=== PATIENT | female | born 2000 | race Caucasian/White ===

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

== ENCOUNTER 2022-03-27 13:47 | Emergency (ER) | payer OTHER ==
--- NOTE | 2022-03-27 14:51 | RAD REPORT ---
EXAM DESCRIPTION: RAD - Forearm Left - 03/27/2022 2:37 pm CLINICAL HISTORY: Pain COMPARISON: No comparisons FINDINGS/IMPRESSION: No acute fracture. No malalignment. No significant focal degenerative changes.
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
[2022-03-27 15:15] VITALS: TEMP 99.9; O2SAT 100
[2022-03-27 15:16] VITALS: BP 129/66
== END 2022-03-27 15:10 | disposition home or self-care (01) ==
LOC: ER 13:47
DX: M79.632 Pain in left forearm (principal); V49.40XA Driver injured in collision with unspecified motor vehicles in traffic accident, initial encounter; Z88.5 Allergy status to narcotic agent
CPT/HCPCS: 99283

== ENCOUNTER 2023-02-13 18:39 | Emergency (ER) | payer OTHER, SELFPAY ==
--- OUTSIDE RECORDS SUMMARY | 2023-02-13 18:42 | XMS REPORT | Continuity of Care Document ---
:2000 Author Organization [facility] t Address [address] [place] [address] Care Team Providers Name Role Phone PCP, PATIENT DOES NOT HAVE A Primary Care Physician UnavailAUBREE Perez Attending Clinician Unavailable AUBREE OSHEA Attending Clinician Unavailable Linda BARRAGAN, Dennis Attending Clinician DENNIS MCKEON Attending Clinician Unavailable Doctor Unassigned, [place] Attending Clinician Unavailable Payers Payer Name Policy Type Policy Number Effective Date Expiration Date S horace POPENA II [id number] 2022 00:00:00 Problems Condition Condition Condition Status Onset Resolution Last Treating Co mments Source Name Details Category Date Date Treatment Clinician Date Dyspareuni Dyspareuni Disease Active U nivers a in a in 09-04 ity of female female 00:00: [address] BMI BMI Disease Active Univers 30.0-30.9, 30.0-30.9, 09-04 it y of adult adult 00:00: [address] UTI UTI Disease Active Univers symptoms symptoms 09-04 ity of 00:00: [address] Allergies, Adverse Reactions, Alerts Allergy Allergy Status Severity Reaction(s) Onset Inactive Treating Comm ents Source Name Type Date Date Clinician NO KNOWN Drug Active Univers ALLERGIE Class ity of S [facility] Social History Social Habit Start Date Stop Date Quantity Comments Source Tobacco use and 2022-09-04 2022-09-04 Smokeless tobacco Un iversity of exposure 00:00:00 00:00:00 non-user [facility] Alcohol intake 2022-09-04 2022-09-04 Ex-drinker [facility] 00:00:00 00:00:00 (finding) [facility] Sex Assigned At [birth year] Universit y of 00:00:00 00:00:00 [facility] Smoking Status Start Date Stop Date Source Tobacco smoking consumption [facility] Never smoked tobacco [facility] Medications Ordered Filled Start Stop Current Ordering Indication Dosage Frequency Signature Comments Components Source Medication Medication Date Date Medication? Clinician (SIG) Name Name pumpkin Yes Take by [facility] seed 09-04 mouth. ity of extract/soy 11:25: [place] [facility] ([facility] BLADDER Branch CONTROL ORAL) pumpkin Yes Take by [facility] seed 6 mouth. ity of extract/soy 11:25: [place] [facility] ([facility] BLADDER Branch CONTROL ORAL) Vital Signs Vital Name Observation Time Observation Value Comments Source Systolic blood 2022-09-04 16:24:00 122 mm[Hg] Univer sity of pressure [facility] Diastolic blood 2022-09-04 16:24:00 76 mm[Hg] Unive rsity of [facility] Heart rate 2022-09-04 16:24:00 73 /min [facility] Body temperature 2022-09-04 16:24:00 36.72 [facility] Respiratory rate 2022-09-04 16:24:00 18 /min [facility] Body height 2022-09-04 16:24:00 160 cm [facility] Body weight 2022-09-04 16:24:00 78.019 kg [facility] BMI 2022-09-04 16:24:00 30.47 kg/m2 [facility] Procedures Procedure Date / Time Performed Performing Clinician Farhad e ASSIGNMENT OF BENEFITS 2022-09-04 16:14:52 Doctor Unassigned, No [facility] Encounters Start End Encounter Admission Attending Care Care Encounter Source Date/Time Date/Time Type Type Clinicians Facility Department ID 2022-09-24 2022-09-24 Outpatient R AUBREE OSHEA [facility] [id number] [facility] 10:30:00 10:30:00 AUBREE OSHEA [facility] 2022-09-04 2022-09-04 Office Tritschler, [facility] [id number] Univers 11:00:00 12:03:23 Visit Dennis OSHEA [id number] it y of [facility] [id number] [facility] [id number] [facility] [address] 2022-09-04 2022-09-04 Outpatient R LINDA DENNIS [facility] [id number] Univers 11:00:00 12:03:23 DENNIS MCKEON itbran [facility] 2022-09-04 2022-09-04 Orders Doctor RACHID [id number] Univers 00:00:00 00:00:00 Only Unassigned, TATA [id number] ity of [place] [facility] [id number] Eh [id number] [facility] [address] 2022-08-21 2022-08-21 Outpatient OWEN WEAVER [id number] [place] 16:00:14 16:00:14 0518 F [place] Results This patient has no known results.
[2023-02-13] MEDS ORDERED: NA CHLORIDE 0.9% 1,000 ML ONE ×2 (20:03→22:10)
[2023-02-13] MEDS ORDERED: ONDANSETRON 4 MG/2 ML VIAL ONE (20:03)
[2023-02-13] MEDS ORDERED: FAMOTIDINE 20 MG/2 ML VIAL IV ONE (20:03)
[2023-02-13 20:07] LABS: Specific Gravity 1.008 (1.005-1.030)
[2023-02-13 20:10] LABS: Specific Gravity 1.008 (1.005-1.030); Urine Bacteria <20 /HPF (<20); Urine Bilirubin NEGATIVE (Negative); Urine Blood Negative (Negative); Urine Clarity Extremely Turbid (Clear); Urine Color Light-Yellow (Yellow); Urine Crystals Unidentified Few /HPF (None Seen); Urine Glucose NEGATIVE (Negative); Urine Protein NEGATIVE (Negative); Urine RBC <5 /HPF (None Seen); Urine Urobilinogen Normal (Normal); Urine pH 6.5 (5.0-7.0)
[2023-02-13 20:18] LABS: SARS-CoV-2 Antigen Rapid Res Negative (Negative)
[2023-02-13 20:26] LABS: Bilirubin Total 0.3 mg/dL (0.2-1.0); Potassium 3.4 mEq/L (3.5-5.1)
[2023-02-13 20:46] LABS: Absolute Lymphocytes (CBC) 2.1 K/uL (0.7-4.9); Hematocrit 36.3 % (36.0-45.0); Lymphocytes % 29.5 % (15.3-44.8); MCV 75.1 fL (80-100); MPV 8.7 fL (7.6-11.3); Platelets 365 thou/uL (152-406); RBC Red Blood Cell Count 4.84 M/uL (3.86-4.86)
--- NOTE | 2023-02-13 23:05 | RAD REPORT ---
EXAM DESCRIPTION: RADChest Single View02/13/2023 10:06 pm CLINICAL HISTORY: COUGH COMPARISON: Chest Single View dated 09/27/2020 TECHNIQUE: Portable AP view of the chest. FINDINGS: The lungs are clear. No pneumothorax or effusion. The cardiomediastinal contours are unre markable. IMPRESSION: No acute cardiopulmonary process.
--- NOTE | 2023-02-14 00:32 | ER ---
Nurse's Notes [facility] Name: Flex Thao Age: 22 yrs Sex: Female : 2000 Arrival Date: 02/13/2023 Time: 18:39 Bed 12 Private MD: Diagnosis: Nausea with vomiting, unspecified;Cough;Acute pharyngitis, unspecified;Dizziness and giddiness Presentation: 02/13 19:08 Chief complaint: Patient states: I've been throwing up a lot I haven't been able to vc1 keep anything down and I have a really bad cough. It started yesterday morning and I have been dizzy and lightheaded. Coronavirus screen: Vaccine status: Patient reports being unvaccinated. Client denies travel out of the [place] in the last 14 days. cough unrelated to allergies, fever, nausea, runny nose, sore throat, vomiting. Client presents with at least one sign or symptom that may indicate coronavirus-19. Ebola Screen: Patient negative for fever greater than or equal to 101.5 degrees Fahrenheit, and additional compatible Ebola Virus Disease symptoms Patient denies exposure to infectious person. Patient denies travel to an Ebola-affected area in the 21 days before illness onset. No symptoms or risks identified at this time. Initial Sepsis Screen: Does the patient meet any 2 criteria? No. Patient's initial sepsis screen is negative. Does the patient have a suspected source of infection? No. Patient's initial sepsis screen is negative. Risk Assessment: Do you want to hurt yourself or someone else? Patient reports no desire to harm self or others. Onset of symptoms was February 12, 2023. 19:08 Method Of Arrival: Ambulatory vc1 19:08 Acuity: ROSY 4 vc1 Triage Assessment: 19:13 General: Appears in no apparent distress. uncomfortable, ill, Behavior is calm, vc1 cooperative, appropriate for age. Pain: Complains of pain in throat Pain does not radiate. Pain currently is 7 out of 10 on a pain scale. Aggravated by eating, drinking, swallowing, coughing. EENT: Reports nasal congestion pain when swallowing. Neuro: No deficits noted. Cardiovascular: No deficits noted. Respiratory: Airway is patent Respiratory effort is even, unlabored, Respiratory pattern is regular, symmetrical. GI: Reports nausea, vomiting. : No deficits noted. No signs and/or symptoms were reported regarding the genitourinary system. Derm: No deficits noted. No signs and/or symptoms reported regarding the dermatologic system. Musculoskeletal: No deficits noted. No signs and/or symptoms reported regarding the musculoskeletal system. Historical: - Allergies: 19:13 Codeine; vc1 - Home Meds: 19:13 None [Active]; vc1 - PMHx: 19:13 None; vc1 - PSHx: 19:13 None; vc1 - Immunization history:: Client reports having NOT received the Covid vaccine. - Social history:: Smoking status: Patient denies any tobacco usage or history of. Screenin:[facility] ED Fall Risk Assessment (Adult) Score/Fall Risk Level 0 - 2 = Low Risk. Abuse as6 screen: Denies threats or abuse. Denies injuries from another. Nutritional screening: No deficits noted. Tuberculosis screening: No symptoms or risk factors identified. Assessment: 21:30 Reassessment: Patient appears in no apparent distress at this time. General: Appears as6 ill. 02/14 01:26 Reassessment: No changes from previously documented assessment. Patient and/or family vc1 updated on plan of care and expected duration. Pain level reassessed. Patient is alert, oriented x 3, equal unlabored respirations, skin warm/dry/pink. Vital Signs: 02/13 19:08 BP 123 / 71; Pulse 67; Resp 20; Temp 98; Pulse Ox 100% ; Weight 77.11 kg; Height 5 ft. vc1 3 in. ; Pain 7/10; 21:29 BP 112 / 61; Pulse 71; Resp 20 S; Pulse Ox 98% on R/A; as6 02/14 01:27 BP 110 / 60; Pulse 68; Resp 18; Temp 98; Pulse Ox 98% ; vc1 02/13 19:08 Body Mass Index 30.11 (77.11 kg, 160.02 cm) vc1 02/13 19:08 Pain Scale: Adult vc1 ED Course: 02/13 18:42 Patient arrived in ED. im 18:47 Crispin Solis PA is PHCP. cp 18:47 Rajesh Patricio MD is Attending Physician. cp 19:12 Triage completed. vc1 19:13 Arm band placed on left wrist. vc1 19:57 Inserted saline lock: 20 gauge in right antecubital area, using aseptic technique. as6 Blood collected. 21:29 Bed in low position. Call light in reach. as6 22:08 XRAY Chest (1 view) In Process Unspecified. EDMS 22:48 CT Abd/Pelvis - IV Contrast Only In Process Unspecified. EDMS 02/14 01:26 No provider procedures requiring assistance completed. IV discontinued, intact, vc1 bleeding controlled, No redness/swelling at site. Pressure dressing applied. Administered Medications: 02/13 19:57 Drug: NS 0.9% IV 1000 ml IV at 1 bolus Per protocol; 1000 mL bolus Route: IV; Rate: 1 as6 bolus; Site: right antecubital; 19:57 Drug: Famotidine IVP 20 mg IVP once; dilute with 10 mL 0.9% NaCl; give over 2 minutes as6 Route: IVP; Site: right antecubital; 19:57 Drug: Ondansetron IVP 4 mg IVP once; over 2 minutes Route: IVP; Site: right antecubital;as6 22:00 Drug: NS 0.9% IV 1000 ml IV at 1 bolus Per protocol; 1000 mL bolus Route: IV; Rate: 1 as6 bolus; Site: right antecubital; 02/14 01:22 Drug: Ketorolac IVP 15 mg IVP once Route: IVP; Site: right antecubital; vc1 Medication: 02/13 21:30 VIS not applicable for this client. as6 Outcome: 02/14 00:31 Discharge ordered by . mariah 01:26 Discharged to home ambulatory, with significant other, vc1 01:26 Condition: good 01:26 Discharge instructions given to patient, Instructed on discharge instructions, follow up and referral plans. medication usage, Demonstrated understanding of instructions, follow-up care, medications, Prescriptions given X 2, 01:27 Patient left the ED. vc1 Addendum: 02/16/2023 08:26 Addendum: Culture Results: Positive urine culture. Phone call Attempt #1 spoke with a p3 patient, patient denies any UTI symptoms at this time. Patient instructed to follow up with PCP if symptoms arise. Signatures: Dispatcher [employer] EDIA Crispin Solis PA PA cp Prokisch, Amanda, RN RN ap3 Eitan Jauregui RN RN as6 Amanda Last, RN RN vc1 Del[place], Vivian im
--- NOTE | 2023-02-14 00:32 | EDPHYS ---
Physician Documentation [facility] Name: Flex Thao Age: 22 yrs Sex: Female : 2000 Arrival Date: 02/13/2023 Time: 18:39 Bed 12 Private MD: ED Physician Rajesh Patricio HPI: 02/13 19:45 This 22 yrs old Female presents to ER via Ambulatory with complaints of cp Nausea/Vomiting, Sore Throat, Cough, Dizziness. 19:45 The patient presents to the emergency department with nausea, with "dry heaves", cp vomiting, that is continuous, abdominal pain. Onset: The symptoms/episode began/occurred yesterday. Associated signs and symptoms: Pertinent positives: anorexia, cough, dizziness and lightheaded, sore throat, Pertinent negatives: diarrhea, GI bleeding. Severity of symptoms: in the emergency department the symptoms are unchanged despite home interventions. Historical: - Allergies: 19:13 Codeine; vc1 - Home Meds: 19:13 None [Active]; vc1 - PMHx: 19:13 None; vc1 - PSHx: 19:13 None; vc1 - Immunization history:: Client reports having NOT received the Covid vaccine. - Social history:: Smoking status: Patient denies any tobacco usage or history of. ROS: 19:50 Constitutional: Positive for poor PO intake, Negative for fever, cp 19:50 Eyes: Negative for injury, pain, redness, and discharge, cp 19:50 ENT: Positive for sore throat, 19:50 Respiratory: Positive for cough, Negative for shortness of breath, wheezing, 19:50 Abdomen/GI: Positive for abdominal pain, nausea and vomiting, anorexia, Negative for diarrhea, constipation, hematemesis, rectal bleeding, 19:50 : Negative for urinary symptoms, 19:50 Neuro: Positive for dizziness, Negative for altered mental status, syncope, near syncope, 19:50 All other systems are negative, Exam: 19:55 Constitutional: The patient appears in no acute distress, alert, awake, non-toxic, well cp developed, well nourished, uncomfortable, 19:55 Head/Face: Normocephalic, atraumatic. cp 19:55 Eyes: Periorbital structures: appear normal, Conjunctiva: normal, no exudate, no injection, Sclera: no appreciated abnormality, Lids and lashes: appear normal, bilaterally, 19:55 ENT: External ear(s): are unremarkable, Ear canal(s): are normal, clear, TM's: dullness, bilaterally, Nose: is normal, Mouth: Lips: moist, Oral mucosa: pink and intact, moist, Posterior pharynx: is normal, airway is patent, no erythema, no exudate, 19:55 Neck: ROM/movement: is normal, is supple, without pain, no range of motions limitations, no meningismus, no nuchal rigidity, 19:55 Chest/axilla: Inspection: normal, 19:55 Cardiovascular: Rate: normal, Rhythm: regular, 19:55 Respiratory: the patient does not display signs of respiratory distress, Respirations: normal, no use of accessory muscles, no retractions, labored breathing, is not present, Breath sounds: are clear throughout, no decreased breath sounds, no stridor, no wheezing, 19:55 Abdomen/GI: Inspection: abdomen appears normal, Bowel sounds: active, all quadrants, Palpation: soft, in all quadrants, moderate abdominal tenderness, in the epigastric area, right upper quadrant and left upper quadrant, rebound tenderness, is not appreciated, involuntary guarding, is not appreciated, 19:55 Back: CVA tenderness, is absent, 19:55 Skin: no rash present. 19:55 Neuro: Orientation: to person, place \\T\\ time. Mentation: is normal, Motor: moves all fours, strength is normal, Sensation: is normal, 23:15 ECG was reviewed by the Attending Physician. cp Vital Signs: 19:08 BP 123 / 71; Pulse 67; Resp 20; Temp 98; Pulse Ox 100% ; Weight 77.11 kg; Height 5 ft. vc1 3 in. ; Pain 7/10; 21:29 BP 112 / 61; Pulse 71; Resp 20 S; Pulse Ox 98% on R/A; as6 02/14 01:27 BP 110 / 60; Pulse 68; Resp 18; Temp 98; Pulse Ox 98% ; vc1 02/13 19:08 Body Mass Index 30.11 (77.11 kg, 160.02 cm) vc1 02/13 19:08 Pain Scale: Adult vc1 MDM: 02/13 19:15 Patient medically screened. cp 20:00 Differential diagnosis: gastritis, cholecystitis, pancreatitis, appendicitis, viral cp gastroenteritis, gastroenteritis. 02/14 00:30 Data reviewed: vital signs, nurses notes, lab test result(s), EKG, radiologic studies, cp CT scan, plain films. 00:30 I considered the following discharge prescriptions or medication management in the emergency department Medications were administered in the Emergency Department. See MAR. Counseling: I had a detailed discussion with the patient and/or guardian regarding the historical points, exam findings, and any diagnostic results supporting the discharge/admit diagnosis, lab results, radiology results, to return to the emergency department if symptoms worsen or persist or if there are any questions or concerns that arise at home. Response to treatment: the patient's symptoms have markedly improved after treatment, VSS. Nausea markedly improved and vomiting resolved. Will discharge to home for continued monitoring. Special discussion: Based on the patient's Hx, exam, and Dx evaluation, there is no indication for emergent surgery or inpatient Tx. It is understood by the patient/guardian that if the Sx's persist or worsen they need to return immediately for re-evaluation. 02/13 19:18 Order name: CBC with Diff; Complete Time: 21:49 02/13 21:49 Interpretation: Normal except: MCV 75.1; MCH 25.0. 02/13 19:18 Order name: CMP; Complete Time: 21:49 02/13 21:49 Interpretation: Normal except: K 3.4; BUN 4; GLOB 4.0; A/G 1.0; AST 9. 02/13 19:18 Order name: Lipase; Complete Time: 21:49 02/13 19:18 Order name: Test, Urine; Complete Time: 21:49 02/13 19:18 Order name: Urinalysis w/ reflexes; Complete Time: 21:49 02/13 21:49 Interpretation: Normal except: [facility] Extremely Turbid; UNIT 2+; UESTR 75; UWBC 10-20. 02/13 19:18 Order name: SARS RAPID; Complete Time: 21:49 02/13 19:18 Order name: Influenza Screen (a \\T\\ B); Complete Time: 21:49 02/13 19:18 Order name: Strep 02/13 20:13 Order name: Urine Culture [facility] 02/13 20:55 Order name: Throat Culture [facility] 02/13 21:50 Order name: XRAY Chest (1 view); Complete Time: 00:01 02/14 00:01 Interpretation: Report review. 02/13 21:52 Order name: CT Abd/Pelvis - IV Contrast Only 02/13 22:47 Order name: EKG; Complete Time: 22:47 cp 02/13 19:18 Order name: IV Saline Lock; Complete Time: 19:57 cp 02/13 19:18 Order name: Labs collected and sent; Complete Time: 19:57 02/13 22:47 Order name: EKG - Nurse/Tech; Complete Time: 01:22 cp 02/14 00:26 Order name: PO challenge; Complete Time: :22 cp EC/10 23:15 Rate is 54 beats/min. Rhythm is regular. CA interval is normal. QRS interval is normal. cp QT interval is normal. T waves are Inverted in lead aVR. Interpreted by me. Reviewed by me. Administered Medications: 19:57 Drug: NS 0.9% IV 1000 ml IV at 1 bolus Per protocol; 1000 mL bolus Route: IV; Rate: 1 as6 bolus; Site: right antecubital; 19:57 Drug: Famotidine IVP 20 mg IVP once; dilute with 10 mL 0.9% NaCl; give over 2 minutes as6 Route: IVP; Site: right antecubital; 19:57 Drug: Ondansetron IVP 4 mg IVP once; over 2 minutes Route: IVP; Site: right antecubital;as6 22:00 Drug: NS 0.9% IV 1000 ml IV at 1 bolus Per protocol; 1000 mL bolus Route: IV; Rate: 1 as6 bolus; Site: right antecubital; 02/14 01:22 Drug: Ketorolac IVP 15 mg IVP once Route: IVP; Site: right antecubital; vc1 Disposition Summary: 02/14/23 00:31 Discharge Ordered Notes: Location: Home cp Problem: new cp Symptoms: have improved cp Condition: Stable cp Diagnosis - Nausea with vomiting, unspecified cp - Cough cp - Acute pharyngitis, unspecified cp - Dizziness and giddiness cp Followup: cp - With: Private Physician - When: 2 - 3 days - Reason: Worsening of condition Discharge Instructions: - Discharge Summary Sheet cp - Dizziness cp - Nausea and Vomiting, Adult cp - Sore Throat cp - Cough, Adult cp - Form - Excuse from Work, School, or Physical Activity cp Forms: - Family Work Release cp - Medication Reconciliation Form cp - Thank You Letter cp - Antibiotic Education cp - Prescription Opioid Use cp - Patient Portal Instructions cp - Leadership Thank You Letter cp - Work release form vc1 Prescriptions: - Bromfed DM 2-30-10 mg/5 mL Oral syrup - administer 10 milliliter ORAL route every 6 hours as needed for cold symptoms; cp 180 milliliter; Refills: 0, Product Selection Permitted - Zofran 4 mg Oral Tablet - take 1 tablet ORAL route every 12 hours As needed; 20 tablet; Refills: 0, cp Product Selection Permitted Signatures: Dispatcher [employer] EDMS Crispin Solis PA PA cp Slawson, Ashby RN RN as6 Amanda Last RN RN vc1
[2023-02-14] MEDS ORDERED: KETOROLAC 30 MG/ML INJ ONE (01:28)
[2023-02-14 01:32] VITALS: TEMP 98
[2023-02-14 01:33] VITALS: O2SAT 98
[2023-02-14 01:35] VITALS: BP 110/60
--- NOTE | 2023-02-14 14:06 | EKG ---
Test Date: 2023-02-13 Test Time: 23:09:50 Test Tube Maker: MARCIO MEASUREMENT RESULTS: Intervals: Rate: 54 MI: 150 QRSD: 98 QT: 422 QTc: 400 Longs: P: 42 MI: 150 QRS: 79 T: 66 INTERPRETIVE STATEMENTS: Sinus bradycardia with premature atrial complexes Otherwise normal ECG No previous ECG available for comparison Electronically Signed On 02-14-23 14:06:03 DENTAL HYGIENE INSTRUCTOR by Paras Cantu
--- NOTE | 2023-02-14 16:47 | RAD REPORT ---
EXAM DESCRIPTION: CT - Abdomen Pelvis W Contrast - 02/14/2023 10:15 am CLINICAL HISTORY: 22 years Female rlq abdomen pain TECHNIQUE: Axial CT imaging of the abdomen and pelvis was performed following the administration of intravenous contrast.. Oral contrast was not administered. Sagittal and coronal reconstructed image s were then performed. The CT study is performed according to ALARA (as low as reasonably achievabl e) or ALARA/IMAGE GENTLY, with automatic adjustment of mA and/or kV according to patient size. Performed on: 02/13/2023 at 10:41 PM. COMPARISON: CT abdomen and pelvis performed on 09/27/2020 FINDINGS: Lung bases: Lung bases are clear. The heart is normal in size. Liver: The liver is normal in size and configuration. No focal hepatic abnormalities are identified. Liver attenuation is within normal limits. The portal veins are patent. Spleen: The spleen is normal in size, configuration and attenuation. Gallbladder and bile duct: The gallbladder is well distended and unremarkable. There is no biliary ductal dilatation. Pancreas: The pancreas is grossly normal in size and configuration. Adrenal Glands: The adrenal glands are normal in size and configuration. Kidneys: The kidneys are normal in size and configuration. There is no evidence of hydronephrosis. Th ere is no evidence of nephrolithiasis. No definite solid or cystic renal mass lesions are identified. Stomach: The stomach is grossly normal. There is no definite hiatal hernia. Bowel: The bowel gas pattern is non specific and non obstructive. Appendix: The appendix is normal. Free air: There is no evidence of free air. Free fluid: There is no evidence of free fluid. Vasculature: The aorta is normal in caliber and contour. The inferior vena cava is grossly unremarkab le. Lymphadenopathy: No pathologic lymphadenopathy is identified. Bladder: The bladder is well distended and smooth in contour. Reproductive: The uterus is grossly within normal limits. The adnexal regions are within normal limit s. Bones: No acute osseous abnormalities are identified. Soft tissues: No acute soft tissue abnormalities are identified. IMPRESSION: No evidence of acute intra-abdominal or intrapelvic pathology. There is no CT evidence o f acute appendicitis, acute gallbladder pathology or urinary tract obstruction. Electronically signed by: Bhumika Ortega DO 02/13/2023 11:07 PM OBSTETRICAL TECH Due to temporary technical issues with the PACS/Fluency reporting system, reports are being signed by the in house radiologists without review as a courtesy to insure prompt reporting. The interpreting radiologist is fully responsible for the content of the report.
== END 2023-02-14 01:27 | disposition home or self-care (01) ==
LOC: ER 18:39
DX: R11.2 Nausea with vomiting, unspecified (principal); R05.9 Cough, unspecified; J02.9 Acute pharyngitis, unspecified; R42 Dizziness and giddiness; Z88.5 Allergy status to narcotic agent; Z20.822 Contact with and (suspected) exposure to COVID-19; Z11.52 Encounter for screening for COVID-19
CPT/HCPCS: 36415; 71045; 74177; 80053; 81001; 81025; 83690; 85025; 87070; 87077; 87081; 87086; 87088; 87186; 87804; 87811; 93005; 96374; 96375; 99284; J2405; J7030; Q9967

== ENCOUNTER 2023-11-03 21:03 | Emergency (ER) | payer SELFPAY ==
--- OUTSIDE RECORDS SUMMARY | 2023-11-03 21:06 | XMS REPORT | Continuity of Care Document ---
Author Name Unknown Address [address] [place] [address] [facility] Address [address] [place] [address] Care Team Providers Care Licensed Plumber Name Role Phone PCP, PATIENT DOES NOT HAVE A Primary Care Physic devaughn Unavailable SALMA MORRISON Attending Clinician Unavailable Salma Lim Attending Clinician [phone] AUBREE OSHEA Attending Clinician Unavailable AUBREE OSHEA Attending Clinician Unavailable DENNIS MCKEON Attending Clinician DENNIS Treadwell Attending Clinician [place] Doctor Unassigned, [place] Attending Clinician U SALMA Penaloza Admitting Clinician Unavailable Payers Payer Name Policy Type Policy Number Effective Date Expirati on Date Source [employer]IG[employer] II [id number] 2022 00:00:00 Problems Condition Name Condition Details Condition Category Status Onset Date Resolution Date Last Treatment Date Treating Clinician Comments Source Dyspareuni a in female Dyspareuni a in female Disease Active 09-04 00:00: 00 [facility] BMI 30.0-30.9, adult BMI 30.0-30.9, adult Disease Active 09-04 00:00: 00 [facility] UTI symptoms UTI symptoms Disease Active 09-04 00:00: 00 [facility] Allergies, Adverse Reactions, Alerts Allergy Name Allergy Type Status Severity Reaction(s) Onset Date Inactive Date Treating Clinician Comments Source CODEINE DRUG INGREDI Active Rash 10-20 00:00: 00 [facility] Codeine Propensi ty to adverse reaction s Active Rash 10-20 00:00: 00 [facility] NO KNOWN ALLERGIE S Drug Class Active [facility] Social History Social Habit Start Date Stop Date Quantity Comments [facility] intake 2023-10-21 00:00:00 2023-10-21 00:00:00 Ex-drinker (finding) [facility] History of Social function 2023-10-21 00:00:00 2023-10-21 00:00:00 [facility] Tobacco use and exposure 2022-09-04 00:00:00 2022-09-04 00:00:00 Smokeless tobacco non-user [facility] Alcohol intake 2022-09-04 00:00:00 2022-09-04 00:00:00 Ex-drinker (finding) [facility] Sex assigned at 2000 00:00:00 2000 00:00:00 [facility] Smoking Status Start Date Stop Date Source Tobacco smoking consumption unknown [facility] Never smoked tobacco [facility] Medications Ordered Medication Name Filled Medication Name Start Date Stop Date Current Medication? Ordering Clinician Indication Dosage Frequency Signature (SIG) Comments Components Source iopamidol (ISOVUE 370-500 mL) injection 80 mL 10-20 22:45: 00 10-20 22:45 :00 No [id number] 80mL 80 mL, Intravenou s, ONCE, 1 dose, On Thu10/21/23 at 1745, Routine [facility] cefTRIAXone (ROCEPHIN) 1,000 mg in NaCl 0.9% (NS) 100 mL MINI-BAG 10-20 22:15: 00 10-20 22:49 :00 No 1000mg 1,000 mg, IV Piggyback, ONCE, 1 dose, On Thu10/21/23 at 1715, Administer over 30 Minutes, 100 mL, Reason for Anti-Infec tive: Documented Infection, Documented Infection Site: Urine, Duration of Therapy: Once (ED) [facility] phenazopyri dine 200 mg tablet 10-20 00:00: 00 Yes [id number] 200mg Take 1 tablet by mouth in the morning and 1 tablet at noon and 1 tablet in the evening. [facility] ondansetron 4 mg disintegrat ing tablet 10-20 00:00: 00 Yes [id number] 4mg Take 1 tablet by mouth every 8 (eight) hours as needed for Nausea and Vomiting (N/V). [facility] cefdinir 300 mg capsule 10-20 00:00: 00 10-28 04:59 :00 Yes [id number] 300mg Take 1 capsule by mouth in the morning and 1 capsule in the evening. Do all this for 7 days. [facility] pumpkin seed extract/soy germ (AZO BLADDER CONTROL ORAL) 09-04 11:25: 40 Yes Take by mouth. [facility] Vital Signs Vital Name Observation Time Observation Value Comments S ource Systolic blood pressure 2023-10-21 22:20:00 108 mm[Hg] [facility] Diastolic blood pressure 2023-10-21 22:20:00 54 mm[Hg] [facility] Heart rate 2023-10-21 22:20:00 67 /min [facility] Body temperature 2023-10-21 22:20:00 36.94 Maureen [facility] Respiratory rate 2023-10-21 22:20:00 16 /min [facility] Oxygen saturation in Arterial blood by Pulse oximetry 2023-10-21 22:20:00 100 /min [facility] Body height 2023-10-21 18:37:00 160 cm [facility] Body weight 2023-10-21 18:37:00 79.379 kg [facility] BMI 2023-10-21 18:37:00 31.00 kg/m2 [facility] Systolic blood pressure 2022-09-04 16:24:00 122 mm[Hg] [facility] Diastolic blood pressure 2022-09-04 16:24:00 76 mm[Hg] [facility] Heart rate 2022-09-04 16:24:00 73 /min [facility] Body temperature 2022-09-04 16:24:00 36.72 Maureen [facility] Respiratory rate 2022-09-04 16:24:00 18 /min [facility] Body height 2022-09-04 16:24:00 160 cm [facility] Body weight 2022-09-04 16:24:00 78.019 kg [facility] BMI 2022-09-04 16:24:00 30.47 kg/m2 [facility] Procedures Procedure Date / Time Performed Performing Clinicia n Source COMP. METABOLIC PANEL (72562) 2023-10-21 20:22:00 Salma Morrison [facility] CBC WITH DIFF 2023-10-21 20:22:00 Salma Morrison [facility] URINALYSIS 2023-10-21 20:22:00 Salma Morrison [facility] INFLUENZA A/B RSV COVID NAAT 2023-10-21 20:22:00 Salma Morrison [facility] POCT TEST 2023-10-21 20:18:00 Marielle Morrison [facility] ASSIGNMENT OF BENEFITS 2022-09-04 16:14:52 Docto r Unassigned, [place] [facility] Encounters Start Date/Time End Date/Time Encounter Type Admission Type Attending [facility] Care Department Encounter ID Source 2023-10-21 13:37:00 2023-10-21 18:04:00 Emergency X SALMA MORRISON [facility] ERT [id number] [facility] 2023-10-21 13:37:00 2023-10-21 18:04:00 Emergency Salma Morrison [facility] [id number] [facility] 2023-05-28 08:31:13 2023-05-28 08:31:13 Outpatient SFA OWEN [id number] Chava Talbert 2022-09-24 10:30:00 2022-09-24 10:30:00 Outpatient R AUBREE OSHEA ELISHA [facility] [id number] [facility] 2022-09-04 11:00:00 2022-09-04 12:03:23 Outpatient R DENNIS MCKEON CHERYAL [facility] [id number] [facility] 2022-09-04 11:00:00 2022-09-04 12:03:23 Office Visit Dennis Mckeon [facility] [id number] [facility] 2022-09-04 00:00:00 2022-09-04 00:00:00 Orders Only Doctor Unassigned, [place] [facility] [id number] [facility] 2022-08-21 16:00:14 2022-08-21 16:00:14 Outpatient SFA SFA [id number] Chava Talbert Results Test Description Test Time Test Comments Results Result Co mments Source [facility] WITH [id number] 20:53:11* Test Item Value Reference Range Interpretation Comme nts WBC (test code = 6690-2) 7.81 4.30-11.10 RBC (test code = 789-8) 4.65 3.93-5.25 HGB (test code = 718-7) 11.9 g/dL 11.6-15.0 HCT (test code = 4544-3) 37.1 % 35.7-45.2 MCV (test code = 787-2) 79.8 fL 80.6-95.5 L MCH (test code = 785-6) 25.6 pg 25.9-32.8 L MCHC (test code = 786-4) 32.1 g/dL 31.6-35.1 RDW-SD (test code = 30499-2) 38.8 fL 39.0-49.9 L RDW-CV (test code = 788-0) 13.6 % 12.0-15.5 PLT (test code = 777-3) 260 166-358 MPV (test code = 49083-6) 11.0 fL 9.5-12.9 NRBC/100 WBC (test code = 2916405430) 0.0 0.0-10.0 NRBC x10^3 (test code = 6108882016) See_Comment [Automated messa ge] The system which generated this result transmitted reference range: 10*3/?L. The reference range was not used to interpret this result as normal/abnormal. GRAN MAT (NEUT) % (test code = 770-8) 69.5 % IMM GRAN % (test code = 9479310901) 0.40 % LYMPH % (test code = 736-9) 22.4 % MONO % (test code = 5905-5) 5.4 % EOS % (test code = 713-8) 1.3 % BASO % (test code = 706-2) 1.0 % GRAN MAT x10^3(ANC) (test code = 9701255906) 5.43 10*3/uL 1.88-7.09 IMM GRAN x10^3 (test code = 6482962508) 0.03 10*3/uL 0.00-0.06 LYMPH x10^3 (test code = 731-0) 1.75 10*3/uL 1.32-3.29 MONO x10^3 (test code = 742-7) 0.42 10*3/uL 0.33-0.92 EOS x10^3 (test code = 711-2) 0.10 10*3/uL 0.03-0.39 BASO x10^3 (test code = 704-7) 0.08 10*3/uL 0.01-0.07 H Lab Interpretation (test code = 64638-6) [facility]normal [id number] 20:18:00* Test Item Value Reference Range Interpretation Comme nts POCT PREG (test code = 1605) Negative On board controls acceptable with C Line (test code = 3574) No POCT PREG LOT # (test code = 3575) [id number] POCT PREG TEST DATE ( test code = 3576) 08/07/2024 Lab Interpretation (test cod e = 50741-7) Normal [facility] Notes Date/Time Note Provider Source 2023-10-21 18:01:14 Pt given printed and verbal discharge instructions regarding cystitis abdominal pain, RLQ abdominal pain,dysuria, nasal congestion, and vomiting, encouraged hydration. 3 Prescriptions sent to pharmacy. Discussed antibiotic therapy and to take until all completed unless adverse reaction occurs - if occurs, discontinue medication and follow up with pcp/seek medical attention. Pt verbalized understanding of instructions, pt awake alert oriented, resp reg unlabored, skin w/d, color appropriate for race, moves all ext well,pt encouraged to follow up with pcp. Advised to seek medical attention for new/prolonged/worsening of symptoms. No adverse reaction to meds given in ER noted upon discharge. Awake, alert oriented, resp reg unlabored, skin w/d, pt leaving amb with steady gait, in no apparent distress. T Arabella Davila RN [facility] [employer] [employer] 2023-10-21 17:23:52 Patient sitting in chair, on her phone. T [facility] 2023-10-21 13:35:51 Patient has RLQ pain that started Thursday. Has nausea and vomiting. No fever but has some body aches. S [facility] [employer]
[2023-11-03] MEDS ORDERED: FAMOTIDINE 20 MG/2 ML VIAL IV ONE (23:31)
[2023-11-03] MEDS ORDERED: ONDANSETRON 4 MG/2 ML VIAL ONE (23:31)
[2023-11-03] MEDS ORDERED: NA CHLORIDE 0.9% 1,000 ML ONE (23:31)
[2023-11-04 00:08] LABS: Absolute Basophils 0.1 K/uL (0-0.5); Absolute Eosinophils 0.1 K/uL (0-0.5); Absolute Lymphocytes (CBC) 2.1 K/uL (0.7-4.9); Absolute Monocytes 0.5 K/uL (0.1-1.3); Absolute Neutrophil 5.5 K/uL (1.8-8.0); Basophils % 1.1 % (0-1.3); Eosinophils % 1.1 % (0-4.4); Hematocrit 36.3 % (36.0-45.0); Hemoglobin 11.9 g/dL (12.0-15.0); Lymphocytes % 25.7 % (15.3-44.8); MCH 25.3 pg (27.0-35.0); MCHC 32.8 g/dL (32.0-36.0); MCV 77.2 fL (80-100); MPV 8.3 fL (7.6-11.3); Monocytes % 5.7 % (3.3-12.3); Neutrophils % 66.4 % (41.7-73.7); Nucleated Red Blood Cells % 0.1 % (0-0); Platelets 378 thou/uL (152-406); RBC Red Blood Cell Count 4.71 M/uL (3.86-4.86)
[2023-11-04 00:21] LABS: Anion Gap 7.7 mEq/L (5.0-15.0); BUN Blood Urea Nitrogen 7 mg/dL (7-18); Bicarbonate 28 mEq/L (21-32); Glomerular Filtration Rate 131 ml/min (=/>90); Glucose Level 97 mg/dL (74-106); Potassium 3.7 mEq/L (3.5-5.1); Sodium Level 138 mEq/L (136-145)
[2023-11-04 00:23] LABS: Troponin High Sensitivity < 3.0 pg/mL (<58.9)
--- NOTE | 2023-11-04 00:49 | EDPHYS ---
Physician Documentation [facility] Name: Flex Thao Age: 23 yrs Sex: Female : 2000 Arrival Date: 11/03/2023 Time: 21:03 Bed 5 Private MD: ED Physician Eulogio Connolly HPI: 11/02 23:36 This 23 yrs old Female presents to ER via Ambulatory with complaints of Chest Pain, kb Nausea. 23:36 Pt is a 23 year old female who presents for chest pain and vomiting x1 after drinking a kb blue alcoholic drink just block captain. States symptoms started within an hour of arrival. Denies shortness of breath. . 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 - Infectious Disease History:: Denies. - Social history:: Smoking status: Patient denies any tobacco usage or history of. ROS: 23:36 Constitutional: As per HPI kb Exam: 23:19 Constitutional: This is a well developed, well nourished patient who is awake, alert, kb and in no acute distress. Head/Face: Normocephalic, atraumatic. ENT: Moist Mucous membranes Cardiovascular: Regular rate Respiratory: Respirations even and unlabored. No increased work of breathing. Talking in full sentences Abdomen/GI: Soft, non-tender. No distention Skin: Warm, dry with normal turgor. Normal color. MS/ Extremity: Pulses equal, no cyanosis. Neurovascular intact. Full, normal range of motion. Neuro: Awake and alert, GCS 15, oriented to person, place, time, and situation. Moves all extremities. Normal gait. 23:19 ECG was reviewed by the Attending Physician. Vital Signs: 21:44 BP 120 / 70; Pulse 77; Resp 16; Temp 97; Pulse Ox 98% on R/A; Weight 79.38 kg; Height 5 cm10 ft. 3 in. ; Pain 7/10; 23:51 BP 105 / 55; Pulse 62; Resp 17; Temp 97; Pulse Ox 100% ; Pain 8/10; bm8 11/03 00:55 BP 102 / 69; Pulse 67; Resp 17; Temp 97; Pulse Ox 100% ; Pain 0/10; bm8 11/02 21:44 Body Mass Index 31.00 (79.38 kg, 160.02 cm) [facility] 11/02 21:44 Pain Scale: Adult cm10 23:51 Pain Scale: Adult 8 11/03 00:55 Pain Scale: Adult bm8 Francesco Coma Score: 11/02 23:51 Eye Response: spontaneous(4). Motor Response: obeys commands(6). Verbal Response: bm8 oriented(5). Total: 15. 11/03 00:55 Eye Response: spontaneous(4). Motor Response: obeys commands(6). Verbal Response: bm8 oriented(5). Total: 15. MDM: 11/02 21:07 Patient medically screened. kb 11/03 00:48 Differential diagnosis: GERD, abnormal EKG, [place]. Data reviewed: vital signs, nurses kb notes. Counseling: I had a detailed discussion with the patient and/or guardian regarding the historical points, exam findings, and any diagnostic results supporting the discharge/admit diagnosis, lab results, radiology results, the need for outpatient follow up, a family practitioner, to return to the emergency department if symptoms worsen or persist or if there are any questions or concerns that arise at home. 11/02 21:40 Order name: Basic Metabolic Panel; Complete Time: 00:42 cm10 11/02 21:40 Order name: CBC with Diff; Complete Time: 00:16 cm10 11/02 21:40 Order name: Troponin HS; Complete Time: 00:42 cm10 11/02 21:40 Order name: XRAY Chest (1 view) [facility] 11/02 21:40 Order name: EKG; Complete Time: 21:40 10 11/02 21:40 Order name: Cardiac monitoring; Complete Time: 23:48 cm10 11/02 21:40 Order name: EKG - Nurse/Tech; Complete Time: 22:11 cm10 11/02 21:40 Order name: IV Saline Lock; Complete Time: 23:48 cm10 11/02 21:40 Order name: Labs collected and sent; Complete Time: 23:48 cm10 11/02 21:40 Order name: O2 Per Protocol; Complete Time: 23:48 cm10 11/02 21:40 Order name: O2 Sat Monitoring; Complete Time: 23:48 cm10 EC/30 23:19 Rate is 84 beats/min. Rhythm is regular. QRS [place] is Normal. [place] interval is normal at kb 144 msec. QRS interval is normal at 92 msec. QT interval is normal at 437 msec. Administered Medications: 23:56 Drug: Ondansetron IVP 4 mg IVP once; over 2 minutes Route: IVP; Site: right forearm; [facility] 11/03 00:56 Follow up: Response: No adverse reaction [facility] 11/02 23:56 Drug: Famotidine IVP 20 mg IVP once; dilute with 10 mL 0.9% NaCl; give over 2 minutes bm8 Route: IVP; Site: right antecubital; 11/03 00:56 Follow up: Response: No adverse reaction [facility] 11/02 23:56 Drug: NS 0.9% IV 1000 ml IV at 1000 ml once Route: IV; Rate: 1000 ml; Site: right bm8 antecubital; 11/03 00:56 Follow up: Response: No adverse reaction; IV Status: Completed infusion; IV Intake: bm8 1000ml Disposition Summary: 11/04/23 00:48 Discharge Ordered Notes: Location: Home kb Condition: Stable kb Diagnosis - Chest pain, unspecified kb Followup: kb - With: Emergency Department - When: As needed - Reason: Worsening of condition Followup: kb - With: Private Physician - When: 2 - 3 days - Reason: Recheck today's complaints, Continuance of care, Re-evaluation by your physician Discharge Instructions: - Discharge Summary Sheet kb - Nonspecific Chest Pain, Adult, [id number] kb Forms: - Medication Reconciliation Form kb - Antibiotic Education kb - Prescription Opioid Use kb - Patient Portal Instructions kb - Leadership Thank You Letter kb Addendum: 11/05/2023 02:44 I was immediately available for consultation during this patient's visit. I did not e c2 personally see the patient or discuss the patient with the GALLO. . Signatures: Dispatcher [employer] Florence Pickett FNP-C FNP-Nicki Toribio, RN RN cm10 Eulogio Connolly MD MD 2 Cristiano Chowdhury RN RN bm8 Corrections: (The following items were deleted from the chart) 11/03 00:48 00:47 Transition of care: After a detail discussion of the patient's case, care is kb transferred to Eulogio mann
--- NOTE | 2023-11-04 00:49 | ER ---
Nurse's Notes [facility] Name: Flex Thao Age: 23 yrs Sex: Female : 2000 Arrival Date: 11/03/2023 Time: 21:03 Bed 5 Private MD: Diagnosis: Chest pain, unspecified Presentation: 11/02 21:44 Chief complaint: Patient states: chest pressure to the center of her chest that started cm10 after having a drink. Coronavirus screen: Client denies travel out of the [place] in the last 14 days. At this time, the client does not indicate any symptoms associated with coronavirus-19. Ebola Screen: Patient denies travel to an Ebola-affected area in the 21 days before illness onset. No symptoms or risks identified at this time. Initial Sepsis Screen: Does the patient meet any 2 criteria? No. Patient's initial sepsis screen is negative. Does the patient have a suspected source of infection? No. Patient's initial sepsis screen is negative. Risk Assessment: Do you want to hurt yourself or someone else? Patient reports no desire to harm self or others. Onset of symptoms was November 03, 2023. 21:44 Method Of Arrival: Ambulatory cm10 21:44 Acuity: ROSY 3 cm10 Triage Assessment: 21:46 General: Appears in no apparent distress. comfortable, Behavior is calm, cooperative. cm10 Neuro: No deficits noted. Level of Consciousness is awake, alert, obeys commands, Oriented to person, place, time, situation, Appropriate for age. Respiratory: No deficits noted. Airway is patent Respiratory effort is even, unlabored, Respiratory pattern is regular, symmetrical. 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 - Infectious Disease History:: Denies. - Social history:: Smoking status: Patient denies any tobacco usage or history of. Screenin:51 [facility] ED Fall Risk Assessment (Adult) History of falling in the last 3 months, bm8 including since admission No falls in past 3 months (0 pts) Confusion or Disorientation No (0 pts) Intoxicated or Sedated No (0 pts) Impaired Gait No (0 pts) Mobility Assist Device Used No (0 pt) Altered Elimination No (0 pt) Score/Fall Risk Level 0 - 2 = Low Risk Oriented to surroundings, Maintained a safe environment, Educated pt \T\ family on fall prevention, incl call for assistance when getting out of bed, Assessed \T\ reinforced patient's understanding of fall precautions, Hourly rounding (assess needs \T\ fall precautionary measures) done, Used ambulatory aids as needed (educated on \T\ assisted with). Abuse screen: Denies threats or abuse. Nutritional screening: No deficits noted. Tuberculosis screening: No symptoms or risk factors identified. Assessment: 23:51 Reassessment: Patient appears in no apparent distress at this time. Patient and/or bm8 family updated on plan of care and expected duration. Pain level reassessed. Patient is alert, oriented x 3, equal unlabored respirations, skin warm/dry/pink. General: Appears in no apparent distress. comfortable, Behavior is calm, cooperative, appropriate for age. Pain: Complains of pain in diaphragm Pain does not radiate. Pain currently is 8 out of 10 on a pain scale. Quality of pain is described as burning, Pain began 4 hours ago. Is continuous. Neuro: No deficits noted. Level of Consciousness is awake, alert, obeys commands, Oriented to person, place, time, situation, Appropriate for age. Cardiovascular: Reports chest pain, Heart tones S1 S2 present Capillary refill < 3 seconds Patient's skin is warm and dry. Rhythm is sinus rhythm. Respiratory: Airway is patent Trachea midline Respiratory effort is even, unlabored, Respiratory pattern is regular, symmetrical, Breath sounds are clear bilaterally. GI: No signs and/or symptoms were reported involving the gastrointestinal system. : No signs and/or symptoms were reported regarding the genitourinary system. EENT: No signs and/or symptoms were reported regarding the EENT system. Derm: No signs and/or symptoms reported regarding the dermatologic system. Musculoskeletal: No signs and/or symptoms reported regarding the musculoskeletal system. 11/03 00:54 Reassessment: Patient appears in no apparent distress at this time. Patient and/or bm8 family updated on plan of care and expected duration. Pain level reassessed. Patient is alert, oriented x 3, equal unlabored respirations, skin warm/dry/pink. Patient denies pain at this time. Patient states feeling better. Patient states symptoms have improved. Vital Signs: 11/02 21:44 BP 120 / 70; Pulse 77; Resp 16; Temp 97; Pulse Ox 98% on R/A; Weight 79.38 kg; Height 5 cm10 ft. 3 in. ; Pain 7/10; 23:51 BP 105 / 55; Pulse 62; Resp 17; Temp 97; Pulse Ox 100% ; Pain 8/10; bm8 11/03 00:55 BP 102 / 69; Pulse 67; Resp 17; Temp 97; Pulse Ox 100% ; Pain 0/10; bm8 11/02 21:44 Body Mass Index 31.00 (79.38 kg, 160.02 cm) cm10 11/02 21:44 Pain Scale: Adult cm10 23:51 Pain Scale: Adult bm8 11/03 00:55 Pain Scale: Adult bm8 Francesco Coma Score: 11/02 23:51 Eye Response: spontaneous(4). Motor Response: obeys commands(6). Verbal Response: bm8 oriented(5). Total: 15. 11/03 00:55 Eye Response: spontaneous(4). Motor Response: obeys commands(6). Verbal Response: bm8 oriented(5). Total: 15. ED Course: 11/02 21:06 Patient arrived in ED. rg4 21:07 Florence Narvaez FNP-C is [facility]. kb 21:07 Eulogio Connolly MD is Attending Physician. kb 21:45 Triage completed. cm10 21:46 Arm band placed on Patient placed in waiting room. EKG completed in triage. Results cm10 shown to . 21:46 EKG done, by ED staff, reviewed by Florence CESAR. cm10 23:11 XRAY Chest (1 view) In Process Unspecified. EDMS 23:27 Nikky Paul, RN is Primary Nurse. kd3 23:51 Patient has correct armband on for positive identification. Bed in low position. Call bm8 light in reach. Side rails up X 1. Adult w/ patient. Client placed on continuous cardiac and pulse oximetry monitoring. NIBP monitoring applied. voyage management system operator on. Pulse ox on. NIBP on. Door closed. Warm blanket given. Head of bed elevated. 23:51 No provider procedures requiring assistance completed. Inserted saline lock: 20 gauge bm8 in right antecubital area, using aseptic technique. Blood collected. Flushed with 10 mL NS. Patient maintains SpO2 saturation greater than 95% on room air. 11/03 00:55 Provided Education on: post er care. bm8 00:55 IV discontinued, intact, bleeding controlled, No redness/swelling at site. Pressure bm8 dressing applied. Administered Medications: 11/02 23:56 Drug: Ondansetron IVP 4 mg IVP once; over 2 minutes Route: IVP; Site: right forearm; bm8 11/03 00:56 Follow up: Response: No adverse reaction bm8 11/02 23:56 Drug: Famotidine IVP 20 mg IVP once; dilute with 10 mL 0.9% NaCl; give over 2 minutes bm8 Route: IVP; Site: right antecubital; 11/03 00:56 Follow up: Response: No adverse reaction bm8 11/02 23:56 Drug: NS 0.9% IV 1000 ml IV at 1000 ml once Route: IV; Rate: 1000 ml; Site: right bm8 antecubital; 11/03 00:56 Follow up: Response: No adverse reaction; IV Status: Completed infusion; IV Intake: bm8 1000ml Medication: 11/02 23:51 VIS not applicable for this client. bm8 Intake: 11/03 00:56 IV: 1000ml; Total: 1000ml. bm8 Outcome: 00:48 Discharge ordered by . kb 00:55 Discharged to home ambulatory, bm8 00:55 Condition: stable 00:55 Discharge instructions given to patient, Instructed on discharge instructions, follow up and referral plans. safety practices, Demonstrated understanding of instructions, follow-up care, medications, 01:01 Patient left the ED. bm8 Signatures: Dispatcher [employer] EDMS Florence Narvaez FNP-C FNP-Judith Villar Kyli, RN RN kd3 Nicki Aguilar, RN RN cm10 Cristiano Chowdhury, RN RN bm8
[2023-11-04 09:28] VITALS: TEMP 97
[2023-11-04 09:30] VITALS: O2SAT 100
[2023-11-04 09:31] VITALS: BP 102/69
--- NOTE | 2023-11-04 11:42 | EKG ---
Test Date: 2023-11-03 Test Time: 21:43:55 Senior Genetic Counselor: ISABELLA MEASUREMENT RESULTS: Intervals: Rate: 84 CA: 144 QRSD: 92 QT: 370 QTc: 437 [place]: P: 73 CA: 144 QRS: 77 T: 58 INTERPRETIVE STATEMENTS: Normal sinus rhythm with sinus arrhythmia Normal ECG Compared to ECG 02/13/2023 23:09:50 Sinus bradycardia no longer present Atrial premature complex(es) no longer present Electronically Signed On 11-04-23 11:41:23 CDT by Deny Uribe
--- NOTE | 2023-11-04 23:14 | RAD REPORT ---
EXAM DESCRIPTION: RAD - Chest Single View - 11/03/2023 11:09 pm CLINICAL HISTORY: CHEST PAIN COMPARISON: None TECHNIQUE: Single AP view of the chest. FINDINGS: Lung volumes adequate. Cardiac silhouette is normal in size. No pneumothorax. No large pleural effusion. No focal consolidation. No acute bony finding. IMPRESSION: No evidence of acute cardiopulmonary disease. Electronically signed by: Earl Lindo MD 11/03/2023 11:32 PM CDT RP Z9 Due to temporary technical issues with the PACS/Fluency reporting system, reports are being signed by the in house radiologists without review as a courtesy to insure prompt reporting. The interpreting radiologist is fully responsible for the content of the report.
== END 2023-11-04 01:01 | disposition home or self-care (01) ==
LOC: ER 21:03
DX: R07.9 Chest pain, unspecified (principal)
CPT/HCPCS: 36415; 71045; 80048; 84484; 85025; 93005; 99285; J2405; J7030